=== PATIENT | female | born 1995 | race Hispanic/Latino ===

== ENCOUNTER 2016-09-19 08:00 | Emergency (ER) | payer SELFPAY ==
[~2016-09-19] VITALS: Ht 134.6 cm; Wt 50.8 kg
[~2016-09-19 08:00] MED LIST: AMOXICILLIN500 MG PO; BACTRIM DS1 TAB PO; BIRTH CONTROL PO; NAPROSYN500 MG PO; NEOMYCIN/POLYMYXIN/G AS; ROBITUSSIN AC10 ML PO; TAM75CAP PO; TYLENOL 500MG TAB PO
[2016-09-19] MEDS ORDERED: TAM75CAP PO (08:41)
[2016-09-19 08:52] VITALS: BP 113/71
== END 2016-09-19 08:54 | disposition home or self-care (01) | DRG 781 ==
LOC: ED 08:00
DX: O98.811 Other maternal infectious and parasitic diseases complicating pregnancy, first trimester (principal); J09.X2 Influenza due to identified novel influenza A virus with other respiratory manifestations; Z3A.08 8 weeks gestation of pregnancy

== ENCOUNTER 2020-08-20 22:11 | Emergency (ER) | payer SELFPAY ==
[~2020-08-20] VITALS: Ht 134.6 cm; Wt 52.0 kg
[2020-08-21 00:30] VITALS: BP 105/71
== END 2020-08-21 00:49 | disposition home or self-care (01) | DRG 552 ==
LOC: ED 22:11
DX: M54.2 Cervicalgia (principal); F10.129 Alcohol abuse with intoxication, unspecified; F17.210 Nicotine dependence, cigarettes, uncomplicated; V89.2XXA Person injured in unspecified motor-vehicle accident, traffic, initial encounter

== ENCOUNTER 2021-11-07 11:37 | Emergency (ER) | payer SELFPAY ==
[~2021-11-07] VITALS: Ht 134.6 cm; Wt 50.0 kg
[2021-11-07] VITALS (10 sets, daily range): BP systolic 99–113; BP diastolic 62–81
[2021-11-07 12:24] LABS: HEMATOCRIT 35.7 % (37.0-47.0); HEMOGLOBIN 11.6 g/dl (12.0-16.0); MEAN CELL VOLUME 91.8 fL CALC (80.0-100.0); MEAN CORPUSCULAR HGB 29.8 pG CALC (26.0-32.0); MEAN CORPUSCULAR HGB CONC 32.5 g/dL CAL (32.0-36.0); NEUT# 3.31 thou/uL (2.00-7.15); RED BLOOD COUNT 3.89 mill/uL (4.20-5.60); RED CELL DISTRI WIDTH 13.1 % (11.5-15.5)
[2021-11-07 12:36] LABS: ALBUMIN 4.7 g/dL (3.2-5.0); ALKALINE PHOSPHATASE 70 u/l (38-126); ANION GAP 14 (6-22 (CALC)); BILIRUBIN, TOTAL 0.5 mg/dL (0.0-1.4); BUN 13 mg/dL (7-17); BUN/CREATININE RATIO 23 (12-20 (CALC)); CARBON DIOXIDE 24 mmol/l (22-30); CHLORIDE 103 mmol/l (95-108); CREATININE 0.6 mg/dL (0.5-1.0); GFR > 60 ML/MIN (>=60 (CALC)); GFR FOR AFR.AMER. > 60 ML/MIN (>=60 (CALC)); LIPASE 53 u/l (23-300); POTASSIUM 3.5 mmol/l (3.5-5.1); SGOT/AST 25 u/l (14-36); SODIUM 138 mmol/l (137-146); TOTAL PROTEIN 8.2 g/dL (6.3-8.2)
[2021-11-07] MEDS ORDERED: ONDANSETRON4 MG PO ×2 (13:53→14:10)
== END 2021-11-07 14:22 | disposition home or self-care (01) | DRG 392 ==
LOC: ED 11:37
PROVIDERS: Nurse Practitioner
DX: R11.2 Nausea with vomiting, unspecified (principal); R19.7 Diarrhea, unspecified; F17.200 Nicotine dependence, unspecified, uncomplicated; Z20.822 Contact with and (suspected) exposure to COVID-19

== ENCOUNTER 2021-11-29 09:54 | Emergency (ER) | payer SELFPAY ==
[~2021-11-29] VITALS: Ht 134.6 cm; Wt 52.4 kg
[2021-11-29] VITALS (7 sets, daily range): BP systolic 96–117; BP diastolic 64–81
[~2021-11-29 09:54] MED LIST changes: +ONDANSETRON4 MG PO
[2021-11-29 12:45] LABS: URINE BILIRUBIN - DIPSTICK NEGATIVE (NEGATIVE); URINE BLOOD DIPSTICK MODERATE (NEGATIVE); URINE COLOR YELLOW; URINE GLUCOSE - DIPSTICK NEGATIVE (NEGATIVE); URINE KETONE NEGATIVE (NEGATIVE); URINE LEUK ESTERASE NEGATIVE (NEGATIVE); URINE PROTEIN - DIPSTICK NEGATIVE (NEG-TRACE); URINE UROBILINOGEN - DIPSTICK 0.2 E.U./dL (0.2)
[2021-11-29 12:49] LABS: URINE NITRITE - DIPSTICK NEGATIVE (Negative)
== END 2021-11-29 13:53 | disposition home or self-care (01) | DRG 179 ==
LOC: ED 09:54
PROVIDERS: Emergency Medicine
DX: U07.1 COVID-19 (principal); R50.9 Fever, unspecified; R05.9 Cough, unspecified; F17.200 Nicotine dependence, unspecified, uncomplicated

== ENCOUNTER 2022-01-04 06:17 | Emergency (ER) | payer SELFPAY ==
[~2022-01-04] VITALS: Ht 134.6 cm; Wt 54.0 kg
[2022-01-04] VITALS (15 sets, daily range): BP systolic 86–119; BP diastolic 54–76
[2022-01-04 06:45] LABS: URINE BILIRUBIN - DIPSTICK NEGATIVE (NEGATIVE); URINE BLOOD DIPSTICK MODERATE (NEGATIVE); URINE COLOR YELLOW; URINE GLUCOSE - DIPSTICK NEGATIVE (NEGATIVE); URINE KETONE NEGATIVE (NEGATIVE); URINE LEUK ESTERASE NEGATIVE (NEGATIVE); URINE PROTEIN - DIPSTICK NEGATIVE (NEG-TRACE); URINE UROBILINOGEN - DIPSTICK 0.2 E.U./dL (0.2)
[2022-01-04 06:49] LABS: HCG SERUM/URINE (NEG/POS) NEGATIVE (NEGATIVE)
[2022-01-04 06:53] LABS: URINE NITRITE - DIPSTICK NEGATIVE (Negative)
[2022-01-04 06:54] LABS: URINE BACTERIA FEW hpf; URINE MUCUS FEW hpf (NONE-FEW); URINE SQUAMOUS EPITHELIAL CELL FEW EPI/hpf (0-FEW); URINE WBC 0-2 WBC/hpf (0-5)
[2022-01-04 06:57] LABS: HEMATOCRIT 35.2 % (37.0-47.0); HEMOGLOBIN 11.8 g/dl (12.0-16.0); IMMATURE GRANULOCYTES 0.1 % (0.0-5.0); MEAN CELL VOLUME 90.5 fL CALC (80.0-100.0); MEAN CORPUSCULAR HGB 30.3 pG CALC (26.0-32.0); MEAN CORPUSCULAR HGB CONC 33.5 g/dL CAL (32.0-36.0); NEUT# 5.73 thou/uL (2.00-7.15); RED BLOOD COUNT 3.89 mill/uL (4.20-5.60); RED CELL DISTRI WIDTH 14.1 % (11.5-15.5)
[2022-01-04 07:13] LABS: ALBUMIN 4.6 g/dL (3.2-5.0); ALKALINE PHOSPHATASE 96 u/l (38-126); ANION GAP 14 (6-22 (CALC)); BILIRUBIN, TOTAL 0.4 mg/dL (0.0-1.4); BUN 11 mg/dL (7-17); BUN/CREATININE RATIO 20 (12-20 (CALC)); CARBON DIOXIDE 20 mmol/l (22-30); CHLORIDE 105 mmol/l (95-108); CREATININE 0.5 mg/dL (0.5-1.0); GFR FOR AFR.AMER. > 60 ML/MIN (>=60 (CALC)); GFR OTHER RACES > 60 ML/MIN (>=60 (CALC)); POTASSIUM 4.1 mmol/l (3.5-5.1); SGOT/AST 20 u/l (14-36); SODIUM 136 mmol/l (137-146); TOTAL PROTEIN 7.9 g/dL (6.3-8.2)
[2022-01-04] MEDS ORDERED: ZOFRAN4 MG/TAB PO (08:43)
== END 2022-01-04 09:35 | disposition home or self-care (01) | DRG 179 ==
LOC: ED 06:17
PROVIDERS: Emergency Medicine
DX: U07.1 COVID-19 (principal); R50.9 Fever, unspecified; J02.9 Acute pharyngitis, unspecified; R05.9 Cough, unspecified; R52 Pain, unspecified; H92.03 Otalgia, bilateral; F17.200 Nicotine dependence, unspecified, uncomplicated

== ENCOUNTER 2022-05-08 12:29 | Emergency (ER) | payer SELFPAY ==
[2022-05-08] VITALS (7 sets, daily range): BP systolic 104–121; BP diastolic 66–87
[~2022-05-08] VITALS: Ht 149.9 cm; Wt 55.4 kg
[~2022-05-08 12:29] MED LIST changes: +ZOFRAN4 MG/TAB PO
[2022-05-08 14:19] LABS: HEMATOCRIT 36.4 % (37.0-47.0); IMMATURE GRANULOCYTES 0.1 % (0.0-5.0); MEAN CELL VOLUME 91.2 fL CALC (80.0-100.0); MEAN CORPUSCULAR HGB 30.1 pG CALC (26.0-32.0); NEUT# 5.68 thou/uL (2.00-7.15); RED BLOOD COUNT 3.99 mill/uL (4.20-5.60); RED CELL DISTRI WIDTH 13.8 % (11.5-15.5)
[2022-05-08 14:36] LABS: ALBUMIN 4.6 g/dL (3.2-5.0); ALKALINE PHOSPHATASE 96 u/l (38-126); ANION GAP 13 (6-22 (CALC)); BILIRUBIN, TOTAL 0.3 mg/dL (0.0-1.4); BUN 9 mg/dL (7-17); BUN/CREATININE RATIO 16 (12-20 (CALC)); CHLORIDE 104 mmol/l (95-108); CREATININE 0.6 mg/dL (0.5-1.0); GFR FOR AFR.AMER. > 60 ML/MIN (>=60 (CALC)); GFR OTHER RACES > 60 ML/MIN (>=60 (CALC)); POTASSIUM 3.8 mmol/l (3.5-5.1); SGOT/AST 27 u/l (14-36); SODIUM 138 mmol/l (137-146); TOTAL PROTEIN 8.2 g/dL (6.3-8.2)
[2022-05-08 14:39] LABS: CARBON DIOXIDE 25 mmol/l (22-30)
[2022-05-08 14:48] LABS: URINE BILIRUBIN - DIPSTICK NEGATIVE (NEGATIVE); URINE BLOOD DIPSTICK NEGATIVE (NEGATIVE); URINE COLOR YELLOW; URINE GLUCOSE - DIPSTICK NEGATIVE (NEGATIVE); URINE KETONE NEGATIVE (NEGATIVE); URINE LEUK ESTERASE NEGATIVE (NEGATIVE); URINE PROTEIN - DIPSTICK NEGATIVE (NEG-TRACE); URINE SPECIFIC GRAVITY 1.015; URINE UROBILINOGEN - DIPSTICK 0.2 E.U./dL (0.2)
[2022-05-08 14:50] LABS: URINE NITRITE - DIPSTICK NEGATIVE (Negative)
[2022-05-08 15:18] LABS: TSH, 3RD GENERATION 1.91 uIU/mL (0.47 - 4.68)
== END 2022-05-08 16:17 | disposition home or self-care (01) | DRG 948 ==
LOC: ED 12:29
PROVIDERS: Family Medicine
DX: R53.83 Other fatigue (principal); F17.200 Nicotine dependence, unspecified, uncomplicated; Z20.822 Contact with and (suspected) exposure to COVID-19